=== PATIENT | female | born 1995 | race Caucasian/White ===

== ENCOUNTER 2017-11-10 13:48 | Inpatient (IN) | payer OTHER ==
[~2017-11-10] VITALS: Ht 167.6 cm; Wt 157.0 kg
[2017-11-14] MEDS ORDERED: PROTONIX40 MG PO (12:04)
== END 2017-11-14 14:12 | disposition home or self-care (01) | DRG 440 ==
LOC: ER 13:48 → SURH 11-11 08:40
PROC: BF37ZZZ Magnetic Resonance Imaging (MRI) of Pancreas (ICD-10-PCS; 2017-11-11)
PROC: 0DB78ZX Excision of Stomach, Pylorus, Via Natural or Artificial Opening Endoscopic, Diagnostic (ICD-10-PCS; principal; 2017-11-14)
DX: K85.80 Other acute pancreatitis without necrosis or infection (principal); E03.8 Other specified hypothyroidism